=== PATIENT | female | born 1975 | race Caucasian/White ===

== ENCOUNTER 2017-12-24 09:52 | Emergency (ER) | payer OTHER ==
--- NOTE | 2017-12-24 09:57 | Emergency Department Record ---
History of Present Illness - General Chief Complaint: Ankle/Foot Injury Stated Complaint: FALL Time Seen by Provider: 12/24/17 09:56 Source: Patient - History of Present Illness Initial Comments: The patient was going out to her car down two steps just prior to arriving here , when she twisted her left ankle by inverting it accidentally. She states this was so painful that she cried. She denies prior injury to this ankle. She is unable to weight bear. She denies other injury. She took 2 aleve and came here to get it checked. Injury: Ankle: Left Type of Injury: Inversion - Related Data Previous Rx's Medication Instructions Recorded Acetaminophen [Tylenol Es] 500 mg PO Q6H #20 tablet 12/24/17 Ibuprofen [Motrin 400Mg] 400 mg PO Q8H PRN #20 tablet 12/24/17 Allergies Allergy/AdvReac Type Severity Reaction Status Date / Time No Known Allergies Allergy none Verified 12/24/17 10:05 Review of Systems Reviewed: No additional complaints except as noted below Constitutional: Reports: As per HPI. Denies: Chills, Fever, Malaise, Night sweats, Weakness, Weight change Eyes: Reports: As per HPI. Denies: Eye discharge, Eye pain, Photophobia, Vision change ENT: Reports: As per HPI. Denies: Congestion, Dental pain, Ear pain, Epistaxis , Hearing loss, Throat pain Respiratory: Reports: As per HPI. Denies: Cough, Dyspnea, Hemoptysis, Stridor, Wheezes Cardiovascular: Reports: As per HPI. Denies: Arrhythmia, Chest pain, Dyspnea on exertion, Edema, Murmurs, Orthopnea, Palpitations, Paroxysmal nocturnal dyspnea, Rheumatic Fever, Syncope Endocrine: Reports: As per HPI. Denies: Fatigue, Heat or cold intolerance, Polydipsia, Polyuria Gastrointestinal: Reports: As per HPI. Denies: Abdominal pain, Constipation, Diarrhea, Hematemesis, Hematochezia, Melena, Nausea, Vomiting Genitourinary: Reports: As per HPI. Denies: Abnormal menses, Discharge, Dyspareunia, Dysuria, Frequency, Hematuria, Incontinence, Retention, Urgency Musculoskeletal: Reports: As per HPI. Denies: Arthralgia, Back pain, Gout, Joint swelling, Myalgia, Neck pain Skin: Reports: As per HPI. Denies: Bruising, Change in color, Change in hair/ nails, Lesions, Pruritus, Rash Neurological: Reports: As per HPI. Denies: Abnormal gait, Confusion, Headache, Numbness, Paresthesias, Seizure, Tingling, Tremors, Vertigo, Weakness Psychiatric: Reports: As per HPI. Denies: Anxiety, Auditory hallucinations, Depression, Homicidal thoughts, Suicidal thoughts, Visual hallucinations Hematological/Lymphatic: Reports: As per HPI. Denies: Anemia, Blood Clots, Easy bleeding, Easy bruising, Swollen glands Physical Exam - General General Appearance: Alert, Oriented x3, Cooperative, No acute distress, Mild distress - Head Head exam: Normal inspection - Eye Eye exam: Normal appearance, PERRL, EOMI. negative: Conjunctival injection Pupils: Normal accommodation - ENT ENT exam: Normal exam, Mucous membranes moist, Normal external ear exam, Normal orophraynx, TM's normal bilaterally Ear exam: Normal external inspection. negative: External canal tenderness Nasal Exam: Normal inspection. negative: Discharge, Sinus tenderness Mouth exam: Normal external inspection, Tongue normal Teeth exam: Normal inspection. negative: Dental caries Throat exam: Normal inspection. negative: Tonsillar erythema, Tonsillar exudate - Neck Neck exam: Normal inspection, Full ROM. negative: Tenderness - Respiratory Respiratory exam: Normal lung sounds bilaterally. negative: Respiratory distress - Cardiovascular Cardiovascular Exam: Regular rate, Normal rhythm, Normal heart sounds - GI/Abdominal GI/Abdominal exam: Soft. negative: Tenderness - Rectal Rectal exam: Deferred - exam: Deferred - Extremities Extremities exam: Normal inspection, Full ROM, Normal capillary refill, Tenderness (lateral malleolus of left ankle tender to touch, swollen, and with a slight abrasion, barely visible. She is nontender proximal fibula, calcaneus , medial malleolus or foot. CMS intact distally.). negative: Calf tenderness, Pedal edema - Back Back exam: Reports: Normal inspection, Full ROM. Denies: Muscle spasm, Rash noted, Tenderness - Neurological Neurological exam: Alert, Normal gait, Oriented X3, Reflexes normal - Psychiatric Psychiatric exam: Normal affect, Normal mood - Skin Skin exam: Dry, Intact, Normal color, Warm Medical Decision Making - Management Options MDM Management: Additional Work-up Planned (e.g. ADM/Transfer/OP Study) ( Orthopedic referral Dr Flores) - Data Complexity MDM Data: X-Ray Ordered and/or Reviewed (Left Ankle Xray: Lateral STS with tiny avulsion fx within lateral swollen soft tissues. Per radiologist.) Disposition Disposition: Discharge Clinical Impression: Ankle fracture, left Qualifiers: Encounter type: initial encounter Fracture type: closed Qualified Code(s): S82.892A - Other fracture of left lower leg, initial encounter for closed fracture Disposition: Home, Self-Care Condition: (1) Good Instructions: Ankle Fracture (ED) Additional Instructions: Ice first 48 hours, elevate, left ankle. Posterior splint to left ankle, crutches, no weight bearing. Tylenol alternated with ibuprofen as directed as needed for pain. Follow up with Dr. Flores [facility]. Prescriptions: Acetaminophen [Tylenol Es] 500 mg PO Q6H #20 tablet Ibuprofen [Motrin 400Mg] 400 mg PO Q8H PRN #20 tablet PRN Reason: Pain - Mild To Moderate (1-7) Referrals: ELLIOT FLORES [DOCTOR OF OSTEOPATH] - Forms: Patient Portal Access Quality - Quality Measures Quality Measures: N/A - Blood Pressure Screening Does Patient Have Any of the Following: No Blood Pressure Classification: Normal BP Reading Systolic Measurement: 117 Diastolic Measurement: 75 Screening for High Blood Pressure: < Normal BP, F/U Not Required > [[id number]]
[2017-12-24] MEDS ORDERED: ACETAMINOPHEN 325 MG TAB PO ONE (10:03)
--- NOTE | 2017-12-25 15:32 | RADIOLOGY REPORT ---
DATE: 12/24/2017. EXAM: LEFT ANKLE. HISTORY: AVULSION. TECHNIQUE: Three views of the left ankle are obtained. FINDINGS: There is diffuse soft tissue swelling both anteriorly and laterally. On the mortis view of the ankle, there is evidence of an avulsion fracture along the lateral aspect of the joint between the tip of the lateral malleolus and the navicula. The ankle mortis itself is preserved. Overall bone density is normal. IMPRESSION: THERE IS A LATERAL AVULSION FRACTURE, LIKELY FROM THE INSERTION OF THE LATERAL COLLATERAL LIGAMENTS. THERE IS SURROUNDING SOFT TISSUE SWELLING BUT NO FRACTURE IN THE ANKLE MORTIS ITSELF. JOB NUMBER: [id number] MTDD
== END 2017-12-24 11:20 | disposition home or self-care (01) ==
LOC: ER 09:52
DX: S82.62XA Displaced fracture of lateral malleolus of left fibula, initial encounter for closed fracture (principal); X50.9XXA Other and unspecified overexertion or strenuous movements or postures, initial encounter
CPT/HCPCS: 99283